=== PATIENT | female | born 1990 | race Caucasian/White ===

== ENCOUNTER → 2017-01-29 | Outpatient (CLI) | payer BC ==
--- NOTE | 2017-01-29 11:57 | MR ---
EXAMINATION TYPE: MR brain wo/w con DATE OF EXAM: 01/29/2017 COMPARISON: NONE HISTORY: optic nerve, ms CONTRAST: Performed utilizing 7.5 mL intravenous Gadavist gadolinium contrast. TECHNIQUE: Multiplanar, multisequence imaging of the brain is performed on a 3.0 Vanessa magnet. Demye linating disease protocol with additional Sagittal Flair sequence is performed. Study is performed wi thin 24 hours of arrival to the hospital. FINDINGS: T2 White Matter Lesions Present : Yes Approximate Number of Lesions: Multiple scattered Locations Identified : Centrum semiovale, periventricular, subcortical Size of Largest Lesion(s): 1. 0.8 x 1.1 x 0.9 cm. Location: Right subcortical temporal lobe white matter Sequence 501 Image 12 (axial) and Sequence 601 Image 25 (sagittal). 2. 1.0 x 0.4 x 0.7 cm. Location: Subcortical white matter left frontal lobe Sequence 501 Image 20 ( axial) and Sequence 601 Image 13 (sagittal). Enhancing Lesion(s) Present: No Change from Prior: No prior exam Diffusion-weighted imaging is performed. No abnormal hyperintensity is present to suggest an acute i ntracranial infarct or acute ischemic change. Ventricles and sulci are appropriate for the patient age. There are no abnormal extra-axial fluid collections. The ventricular system and cisternal spaces are normal in size and appearance. The brain volume is age appropriate. The craniocervical junction brant ears within normal limits. The dural venous sinuses appear patent. May be some minimal punctate central enhancement of a lesion within the left frontal lobe. Series 701 image 42. This area is not hyperintense on diffusion imaging. The visualized sinuses are clear. Visualized orbits are unremarkable. Portions of the orbits within the [id number] are normal. The optic nerves appear unremarkable. Opt ic chiasm is visualized is normal. IMPRESSION: 1. Extensive multiple white matter changes on inversion recovery weighted sequences. Some of these a re perpendicular to the corpus callosum which can be suggestive for, although not diagnostic of, mult iple sclerosis. 2. Single suspected plaque within the subcortical white matter left frontal lobe may have punctate ce ntral enhancement. No additional abnormal enhancement is evident.
== END | disposition home or self-care (01) ==
LOC: RADMRIMAIN 06:10
PROVIDERS: ATTEND Psychiatry & Neurology Neurology
DX: R90.82 White matter disease, unspecified (principal); R93.0 Abnormal findings on diagnostic imaging of skull and head, not elsewhere classified
CPT/HCPCS: 70553; A9581

== ENCOUNTER → 2017-01-30 | Outpatient (CLI) | payer BC ==
[2017-01-30 16:35] LABS: Treponemal Ab Non-Reactive (Non-Reactive)
[2017-01-30 20:02] LABS: ANA w/Reflex to Titer NEGATIVE (NEGATIVE); RNP AB Interpretation NEGATIVE (NEGATIVE)
[2017-01-31 10:00] LABS: Lyme IgG/IgM 0.1 Index; Lyme IgG/IgM Interp NEGATIVE (NEGATIVE)
== END | disposition home or self-care (01) ==
LOC: LABWHC1 09:24
PROVIDERS: ATTEND Psychiatry & Neurology Neurology
DX: H46.9 Unspecified optic neuritis (principal)
CPT/HCPCS: 36415; 82164; 82607; 84439; 84443; 85652; 86038; 86225; 86235; 86618; 86780

== ENCOUNTER → 2017-02-14 | Outpatient (CLI) | payer BC ==
[2017-02-14 08:13] LABS: Basophils # (A) 0.1 k/uL (0-0.2); Basophils % (A) 1 %; CH 28.5; CHCM 32.9; Eosinophils # (A) 0.1 k/uL (0-0.7); Eosinophils % (A) 1 %; HDW 2.37; HGB 14.7 gm/dL (11.4-16.0); Luc # (Auto) 0.17; Luc % (Auto) 2; Lymphocytes # (A) 2.1 k/uL (1.0-4.8); Lymphocytes % (A) 20 %; MCH 28.9 pg (25.0-35.0); MCHC 33.3 g/dL (31.0-37.0); MCV 86.9 fL (80.0-100.0); Monocytes # (A) 0.5 k/uL (0-1.0); Monocytes % (A) 5 %; Neutrophils # (A) 7.9 k/uL (1.3-7.7); Neutrophils % (A) 73 %; RBC 5.06 m/uL (3.80-5.40); WBC 10.9 k/uL (3.8-10.6); WBC (Perox) 11.66
[2017-02-14 08:20] LABS: ALT 32 U/L (9-52); AST 18 U/L (14-36); Alkaline Phosphatase 42 U/L (38-126); Anion Gap 11 mmol/L; Blood Urea Nitrogen 16 mg/dL (7-17); Calcium 9.6 mg/dL (8.4-10.2); Carbon Dioxide 25 mmol/L (22-30); Chloride 105 mmol/L (98-107); Glucose 83 mg/dL (74-99); Non-African American GFR(MDRD) >60 (>60 ml/min/1.73 sqM); Potassium 4.8 mmol/L (3.5-5.1); Sodium 141 mmol/L (137-145); Total Bilirubin 0.4 mg/dL (0.2-1.3); Total Protein 7.5 g/dL (6.3-8.2)
--- NOTE | 2017-02-14 09:00 | MR ---
EXAMINATION TYPE: MR cspine/tspine wo/w con DATE OF EXAM: 02/14/2017 COMPARISON: NONE HISTORY: MS TECHNIQUE: Multiplanar, multisequence images of the cervical spine and lumbar spine is performed prior to and af ter the administration of IV contrast, utilizing 8 mL intravenous Gadavist for the enhanced portion. FINDINGS: CERVICAL SPINE: Sagittal images of the cervical spine show vertebral body heights and alignment to ap pear satisfactory. The intervertebral discs demonstrate normal heights and multilevel mild disc desic cation as there is abnormal signal within the upper cervical and mid cervical disks. The bone marrow signal intensity is within normal limits. There is an approximately 11.6 x 6.1 x 8.8 mm T1 hypointense and T2 hyperintense intradural, intramed ullary spinal cord lesion in the posterior aspect of the cord at the C2 level that does not exhibit e nhancement. This is most compatible with a nonactive demyelinating plaque. Axial images show no focal disc herniation or facet degenerative change at any cervical level. There is no spinal canal stenosis, neural foraminal narrowing, or evidence of nerve root compromise at any cervical level. THORACIC SPINE: Sagittal images of the thoracic spine show vertebral body heights and alignment to be satisfactory. Small Schmorl's nodes are seen of T10 and T11 vertebral bodies in the inferior endplat es with reactive Modic changes of the inferior endplate of the T10 vertebral body. There is an approximately 6.5 x 4.0 x 1.2 mm T1 hypointense and T2 hyperintense intradural, intramedu llary spinal cord lesion posterior to the T9-T10 intervertebral disc space that does not exhibit enha ncement. This is also most compatible with a nonactive demyelinating plaque. Axial images show no focal disc herniation or facet degenerative change at any thoracic level. There is no spinal canal stenosis, neuroforaminal narrowing or evidence of nerve root compromise at any tho racic level. IMPRESSION: Nonenhancing intradural, intramedullary spinal cord lesions measuring 11.6 x 6.1 x 8.8 mm at the C2 level and 6.5 x 4.0 x 1.1 mm at the T9-T10 intervertebral disc space level without enhance ment that are most compatible with nonactive demyelinating plaques in this patient with a history of multiple sclerosis.
== END | disposition home or self-care (01) ==
LOC: RADMRIMAIN 06:14
PROVIDERS: ATTEND Psychiatry & Neurology Neurology
DX: G95.9 Disease of spinal cord, unspecified (principal); G35 Multiple sclerosis
CPT/HCPCS: 82747; 80053; 85025; 82306; 72156; 72157; 36415; A9581

== ENCOUNTER → 2018-04-30 | Outpatient (CLI) | payer BC ==
[2018-04-30 11:51] LABS: Basophils # (A) 0.1 k/uL (0-0.2); Basophils % (A) 1 %; Eosinophils # (A) 0.1 k/uL (0-0.7); Eosinophils % (A) 1 %; HCT 40.2 % (34.0-46.0); Lymphocytes % (A) 23 %; MCH 27.3 pg (25.0-35.0); MCHC 32.3 g/dL (31.0-37.0); MCV 84.5 fL (80.0-100.0); Mean Platelet Volume 7.4; Monocytes # (A) 0.4 k/uL (0-1.0); Monocytes % (A) 5 %; Neutrophils # (A) 5.9 k/uL (1.3-7.7); Neutrophils % (A) 69 %; Platelet Count 283 k/uL (150-450); RBC 4.76 m/uL (3.80-5.40); RDW 12.5 % (11.5-15.5); WBC 8.6 k/uL (3.8-10.6)
[2018-04-30 16:38] LABS: Albumin 4.8 g/dL (3.80-4.90); Albumin/Globulin Ratio 2.18 (1.20-2.10); Anion Gap 8.3 mmol/L (4.00-12.00); Calcium 9.9 mg/dL (8.7-10.3); Carbon Dioxide 26.7 mmol/L (21.6-31.8); Globulin 2.2 g/dL (2.1-3.7); Potassium 4.6 mmol/L (3.5-5.5); Total Bilirubin 0.4 mg/dL (0.3-1.2)
[2018-04-30 16:45] LABS: Immunoglobulin E 14.9 IU/mL (0.00-114.00)
== END ==
LOC: LABWHC1 10:22
PROVIDERS: ATTEND Psychiatry & Neurology Neurology
DX: G35 Multiple sclerosis (principal)
CPT/HCPCS: 36415; 80053; 82784; 82785; 85025; 86355; 86357; 86359; 86360